=== PATIENT | female | born 1975 | race Caucasian/White ===

== ENCOUNTER → 2024-03-16 07:49 | Outpatient (REF) | payer OTHER, SELFPAY | LOC: HWRAD 07:49 | PROVIDERS: ATTENDING PHYSICIAN Internal Medicine | DX: M54.50 Low back pain, unspecified (principal); M25.512 Pain in left shoulder | CPT/HCPCS: 72110; 73030 ==

== ENCOUNTER 2024-07-27 17:57 | Emergency (ER) | payer OTHER, SELFPAY ==
[2024-07-27 18:00] VITALS: BP 148/90
--- NOTE | 2024-07-27 18:00 | ED.GENMED ---
ED Provider Triage
<Avani Phillips BODY RECALL INSTRUCTOR - Last Filed: 07/27/24 18:09>
-
Patient seen by provider in Triage?: Seen in Triage
Attestation: A medical screening examination has been initiated by a qualified medical provider. Based on the assessment performed at this time, it has been determined that an emergent medical condition may exist and the patient has been informed
that further medical evaluation and possible additional diagnostic testing may be needed.
HPI: 48 yo female here for pain bilateral lower back. headache increasing past week, alternately hot and cold past week. 'Intensifying low back pain.' Hx 'baseball sized uterine fibroid' informed by her Urologist about 6 months ago. RADIO COMMENTATOR had told
her years ago the fibroid was small and nothing to worry about.
GENERAL: Alert , in no apparent distress
LUNGS: No acute respiratory distress
NEUROLOGICAL: Alert and oriented
SKIN: Skin intact. No visible changes.
MUSCULOSKELETAL: Moving extremities normally
PSYCH: Normal and appropriate interaction.
This is a medical evaluation conducted in person to initiate diagnostic evaluation and provide initial therapeutics. Please see further documentation by the treating clinician.
History of Present Illness
<Avani Phillips, BODY RECALL INSTRUCTOR - Last Filed: 07/27/24 18:09>
General
Chief Complaint: Back Pain
Time Seen by Provider: 07/27/24 20:58
<KIRAN Joyce - Last Filed: 07/28/24 00:21>
General
Source: patient
Exam Limitations: none
History of Present Illness
History of Present Illness:
This is a 48 year old female that comes in with c/o low back pain. States that this is getting worse and worse. States that this has been going on for 2 years. States that she has been to the chiropractor, histologist, Massage, and nothing helps.
States that she has an MRI and things were normal. States that she knows that something is wrong in side. States that she can't sleep, stand she is just in terrible pain. States that she gets hot and cold sweats. Nausea, diarrhea, headache,
lightheadedness. Denies any fever, chills, chest pain, SOB, vomiting, urinary burning
Past History
<Avani Phillips NP - Last Filed: 07/27/24 18:09>
Past History
ED Past Medical History: GERD and Other (PE, Ovarian cyst, Factor V leiden)
ED Past Surgical History: Orthopedic
Social History
Tobacco: Non-smoker
Alcohol: Occasional
Personal: Single
Living: alone
<KIRAN Joyce - Last Filed: 07/28/24 00:21>
Past History
ED Past Medical History: Other (PE, Ovarian cyst, Factor V Leiden)
ED Past Surgical History: Orthopedic (Bunionectomy)
Review of Systems
<KIRAN Joyce - Last Filed: 07/28/24 00:21>
Review of Systems
All Other Systems: ROS reviewed and negative except as documented in HPI and ROS
Constitutional: Reports other (feels hot and cold); Denies fever or chills
EENT: Reports no symptoms
Respiratory: Reports no symptoms; Denies cough or trouble breathing
Cardiac: Reports no symptoms; Denies chest pain
ABD/GI: Reports abdominal pain, nausea and diarrhea; Denies vomiting
: Reports no symptoms; Denies dysuria, frequency or urgency
Musculoskeletal: Reports back pain (Low back pain)
Skin: Reports no symptoms
Neurological: Reports headache and other (Lightheadedness)
Psychiatric: Reports no symptoms
Phy Exam
<KIRAN Joyce - Last Filed: 07/28/24 00:21>
General Physical Exam
General Presentation: no apparent distress
General age: appears stated age
General Skin: warm and dry
General Habitus: normal
General Mental: alert
General Hydration: appears well hydrated
ENT Exam
ENT Exam: TM's normal, pharynx normal and neck supple
Eye Exam
Eye Exam: EOMI
Cardiovascular Exam
Cardiovascular Exam: regular rate/rhythm, no edema, no murmur and normal peripheral pulses
Pulmonary Exam
Pulmonary Exam: lungs clear, no respiratory distress, no rales, chest non tender, no crackles, no rhonchi, no wheezing and no cough
Gastrointestinal Exam
Gastrointestinal Exam: normal bowel sounds, non tender, soft, no organomegaly, no pulsatile mass and non distended
Musculoskeletal Exam
Musculoskeletal Exam: full ROM and no edema
Skin Exam
Skin Exam: normal color, warm/dry, no rash and no petechia
Psychiatric Exam
Psychiatric Exam: normal mood/affect
Course
<Avani Phillips BODY RECALL INSTRUCTOR - Last Filed: 07/27/24 18:09>
Orders/Labs/Results
Orders:
Orders
07/27/24 18:12
Complete Blood Count/With Diff Urgent
Comprehensive Metabolic Panel Urgent
HCG, Serum Qualitative Screen Urgent
Comment: ADD ON
07/27/24 18:16
Urinalysis Reflex To Culture Urgent
Date Specimen was Collected: 07/27/24
Time Specimen was Collected: 18:12
07/27/24 21:21
0.9% Sodium Chloride 1000 ml [Nss] 1,000 ml IV BOLUS
Iohexol [Omnipaque] See Protocol PO NOW STA
07/27/24 21:22
CT Abd/pel W Iv And Oral Contr Urgent
Comment:
Reason For Exam: back pain, nausea, abd pain
07/27/24 21:25
Acetaminophen [Tylenol] 1,000 mg PO NOW STA
Ketorolac [Toradol] 30 mg IV NOW STA
07/27/24 22:33
Add On- LAB Urgent
Tests Added?: hcg qualitative
Abnormal Lab Results
07/27/24
18:12
Monocytes % 10.5 H %
(1.7-9.3)
Alkaline Phosphatase 33 L U/L
(38-126)
07/27/24 18:12
07/27/24 18:12
Vital Signs
Initial and Last Documented VS:
Initial Vital Signs
Temp Pulse Resp BP Pulse Ox
98.0 F 95 16 148/90 98
07/27/24 18:00 07/27/24 18:00 07/27/24 18:00 07/27/24 18:00 07/27/24 18:00
Last Documented Vital Signs
Temp Pulse Resp BP Pulse Ox
98.7 F 71 18 119/77 97
07/27/24 19:54 07/27/24 21:41 07/27/24 21:41 07/27/24 21:41 07/27/24 21:41
<KIRAN Joyce - Last Filed: 07/28/24 00:21>
Orders/Labs/Results
Orders:
Orders
07/27/24 18:12
Complete Blood Count/With Diff Urgent
Comprehensive Metabolic Panel Urgent
HCG, Serum Qualitative Screen Urgent
Comment: ADD ON
07/27/24 18:16
Urinalysis Reflex To Culture Urgent
Date Specimen was Collected: 07/27/24
Time Specimen was Collected: 18:12
07/27/24 21:21
0.9% Sodium Chloride 1000 ml [Nss] 1,000 ml IV BOLUS
Iohexol [Omnipaque] See Protocol PO NOW STA
07/27/24 21:22
CT Abd/pel W Iv And Oral Contr Urgent
Comment:
Reason For Exam: back pain, nausea, abd pain
07/27/24 21:25
Acetaminophen [Tylenol] 1,000 mg PO NOW STA
Ketorolac [Toradol] 30 mg IV NOW STA
07/27/24 22:33
Add On- LAB Urgent
Tests Added?: hcg qualitative
Abnormal Lab Results
07/27/24
18:12
Monocytes % 10.5 H %
(1.7-9.3)
Alkaline Phosphatase 33 L U/L
(38-126)
07/27/24 18:12
07/27/24 18:12
Alk phos slightly low. Otherwise normal labs. Urine negative for infection. HCG negative.
Vital Signs
Initial and Last Documented VS:
Initial Vital Signs
Temp Pulse Resp BP Pulse Ox
98.0 F 95 16 148/90 98
07/27/24 18:00 07/27/24 18:00 07/27/24 18:00 07/27/24 18:00 07/27/24 18:00
Last Documented Vital Signs
Temp Pulse Resp BP Pulse Ox
98.7 F 71 18 119/77 97
07/27/24 19:54 07/27/24 21:41 07/27/24 21:41 07/27/24 21:41 07/27/24 21:41
<KIRAN Joyce - Last Filed: 07/28/24 00:21>
MDM/Problems Addressed
Differential Diagnosis Includes:
Fibroids, Musculoskeletal pain
MDM/Problems Addressed:
This is a 48 year old female that comes in with c/o low back pain. States that this has been going on for the past 2 years. States that the pain is getting worse and she knows that something is wrong in side of her.
Will check labs. Urine and get CT scan.
Back into see patient. Explained that her CT shows uterine fibroid. Patient to follow up with the SLICE PLUG CUTTER OPERATOR HELPER and the family doctor. Patient can take Tylenol 1000mg every 6 hours for pain. Return with any concerns
Chronic conditions affecting care:
NA
Acute Exacerbation and/or Progression of Chronic Illness:
NA
<KIRAN Joyce - Last Filed: 07/28/24 00:21>
*Radiology
Radiology exam reviewed: radiology read reviewed (CT- night hawk-MIld hyperenhancement of the left ureter, can be corelated with signs or symptoms of urinary tract infection. NO bowel obstruction. NOrmal gallbladder and appendix. Incidentals: Likely
fibroid uterus as seen on prior Moderate stool burden. No obstructive uropathy. No hepatic or) and all reviewed NAD by ED Provider (CT cont- or pancreatic mass. NO abdominal aortic aneurysm. No acute osseous abnormality. Again seen is right lower
pericardial cyst. Unchanged right lower lobe Pulmonary nodule. No acute abnormality within the visualized soft tissues. )
*Pulse Oximetry
Patient hypoxic: no
*EKG
Interpreted by ED Provider?: NA
Rate: EKG- N/A
*Hydroelectric Powerplant Supervisor Interpretation
Rate: Hydroelectric Powerplant Supervisor- N/A
*Critical Care Note
Total Time (30-74mins, 75-104mins- exclusive of procedures): Not Applicable
ED Attending Note
<Avani Phillips NP - Last Filed: 07/27/24 18:09>
-
Portions of this chart may have been created with voice recognition software.� Occasional wrong word or��sound alike� substitutions may have occurred due to the inherent limitations of voice recognition software.
Discharge Plan
Departure
Patient Disposition: Home (Routine Discharge)
Date of Disposition: 07/28/24
Time of Disposition: 00:17
Patient with high blood pressure during this ER visit?: No
Condition: Good
Covid-19: Not Applicable
Discharge Problem:
Low back pain, Uterine fibroid
Instructions: Low Back Pain (DC), Uterine Fibroids (DC)
Prescriptions:
No Action
alprazolam 0.5 MG tablet
0.5 mg PO PRN PRN (Reason: anxiety)
zolpidem 5 MG tablet
5 mg PO HS PRN (Reason: insomnia)
rivaroxaban [Xarelto] 10 MG tablet
10 mg PO DAILY
L.acidoph, paracasei,B. lactis 1 EACH capsule
1 ea PO DAILY
Calcium
1 tab PO DAILY
cyclobenzaprine 10 mg tablet
10 mg PO TID PRN (Reason: muscle spasm) Qty: 10 0RF
Referrals:
UNKNOWN - PT DOES,NOT KNOW [Family Provider] -
Activity Restrictions/Additional Instructions:
As discussed, your blood work is normal along with your urine. Your CT is negative for anything acute. There is a uterine Fibroid that was noted on prior studies. Please follow up with the SLICE PLUG CUTTER OPERATOR HELPER for further evaluation. You may use Tylenol 1000mg
very 6 hours for pain. IF YOU HAVE ANY OTHER CONCERNS PLEASE RETURN TO THE EMERGENCY ROOM.
Interventions
Interventions:
*Risk Screen - Suicide Last Done: 07/27/24 18:00
*General Assessment Last Done: 07/27/24 21:39
*Neglect/Abuse Screening Last Done: 07/27/24 18:00
*ED COVID-19 Vaccine History Last Done: 07/27/24 21:39
ED-Musculoskeletal Assessment Last Done: 07/27/24 21:40
Discharge Date and Time
Print Language: BOLIVIAN
[2024-07-27 18:37] LABS: Urine Albumin Negative (Neg - Trace); Urine Bilirubin Negative (Negative); Urine Character Clear (Clear); Urine Color Yellow; Urine Glucose Negative (Negative); Urine Ketone Negative (Negative); Urine Leukocyte Negative (Negative); Urine Nitrite Negative (Negative); Urine Occult Blood Negative (Negative); Urine Urobilinogen Negative (Neg - 1+)
[2024-07-27 18:37] LABS: % Basophils 0.4 % (0-2); % Eosinophils 1.8 % (0-6); % Immature Granulocytes 0.2 % (0-0.5); % Monocytes 10.5 % (1.7-9.3); % Neutrophils 58.1 % (42.2-75.2); Absolute Eosinophils 0.1 10^3/uL (0-0.7); Absolute Lymphocytes 1.6 10^3/uL (1.2-3.4); Absolute Monocytes 0.6 10^3/uL (0.1-0.6); Absolute Neutrophils 3.2 10^3/uL (1.4-6.5); Hematocrit 37.6 % (37.0-47.0); Hemoglobin 12.8 g/dL (12.0-16.0); Mean Corpuscular Hgb 29.5 pg (27.0-31.0); Mean Corpuscular Volume 86.6 fL (81.0-99.0); Mean Platelet Volume 9.9 fL (7.4-10.4); Nucleated Red Blood Cells % 0 %; Platelet Count 256 10^3/uL (130-400); Red Blood Cell Count 4.34 10^6/uL (4.20-5.40); Red Cell Dist. Width 13.2 % (11.5-14.5); White Blood Cell Count 5.5 10^3/uL (4.8-10.8)
[2024-07-27 18:56] LABS: ALT (SGPT) 16 U/L (0-35); AST (SGOT) 23 U/L (14-36); Albumin 4.2 g/dl (3.5-5.0); Alkaline Phosphatase 33 U/L (38-126); Blood Urea Nitrogen 15 mg/dl (7-17); Calcium 9.4 mg/dl (8.4-10.2); Carbon Dioxide 26 mmol/L (22-30); Chloride 104 mmol/L (98-107); Glucose 90 mg/dl (70-99); Potassium 3.6 mmol/L (3.5-5.1); Sodium 142 mmol/L (135-145); Total Bilirubin 0.2 mg/dl (0.2-1.3); Total Protein 6.5 g/dl (6.3-8.2); eGFR > 60.00
[2024-07-27 19:54] VITALS: BP 110/76
[2024-07-27] MEDS: OMNIPAQUE 50 ML PO (21:30)
[2024-07-27] MEDS: NSS 1000 IV (21:36)
[2024-07-27] MEDS: TYLENOL 1000 MG PO (21:36)
[2024-07-27] MEDS: TORADOL 30 MG IV (21:37)
[2024-07-27 21:41] VITALS: BP 119/77
[2024-07-27 23:05] LABS: HCG, Serum Qualitative Screen Negative
[2024-07-28 00:27] VITALS: BP 125/85
== END 2024-07-28 00:28 | disposition home or self-care (01) ==
LOC: EMR 17:57
PROVIDERS: Registered Nurse; EMERGENCY PHYSICIAN Student in an Organized Health Care Education/Training Program
DX: M54.50 Low back pain, unspecified (principal); D25.9 Leiomyoma of uterus, unspecified; D68.51 Activated protein C resistance; K21.9 Gastro-esophageal reflux disease without esophagitis
CPT/HCPCS: 96374; 96361; 99284; 74177; 80053; 81003; 84703; 85025; Q9967

== ENCOUNTER → 2024-08-19 19:22 | Outpatient (REF) | payer OTHER, SELFPAY | LOC: MRI 3T 19:22 | DX: M54.50 Low back pain, unspecified (principal) | CPT/HCPCS: 72148 ==

== ENCOUNTER → 2024-11-12 09:41 | Outpatient (REF) | payer OTHER, SELFPAY | LOC: RAD 09:41 | PROVIDERS: ATTENDING PHYSICIAN Internal Medicine Cardiovascular Disease | DX: Q24.8 Other specified congenital malformations of heart (principal) | CPT/HCPCS: 71260; Q9967 ==

== ENCOUNTER → 2024-11-12 15:52 | Outpatient (REF) | payer OTHER, SELFPAY | LOC: HWRCS 15:52 | PROVIDERS: ATTENDING PHYSICIAN Internal Medicine Cardiovascular Disease | DX: Q24.8 Other specified congenital malformations of heart (principal); R00.1 Bradycardia, unspecified | CPT/HCPCS: 93306 ==

== ENCOUNTER → 2024-12-15 19:44 | Outpatient (REF) | payer OTHER, SELFPAY | LOC: MRI 3T 19:44 | PROVIDERS: ATTENDING PHYSICIAN Obstetrics & Gynecology Gynecology; FAMILY PHYSICIAN Physician Assistant | DX: D21.9 Benign neoplasm of connective and other soft tissue, unspecified (principal); N83.209 Unspecified ovarian cyst, unspecified side | CPT/HCPCS: 72197; A9575 ==

== ENCOUNTER 2025-04-03 01:43 | Emergency (ER) | payer OTHER, SELFPAY ==
[2025-04-03 01:54] VITALS: BP 120/87
[2025-04-03 02:00] VITALS: BP 130/84
--- NOTE | 2025-04-03 02:08 | ED.GENMED ---
History of Present Illness
General
Chief Complaint: Chest Pain
Source: patient
Exam Limitations: none
Time Seen by Provider: 04/03/25 02:07
Nursing documentation reviewed up to this point in time: agreed with
History of Present Illness
History of Present Illness:
49-year-old female presents emergency department complaining of chest tightness and nausea and headache. The headache began earlier today. She has had chest tightness and numbness in her left arm for the past 2 days. She also complains of neck
pain, which she sometimes gets neck strains and muscle tightness.
Past History
Past History
ED Past Medical History: GERD and Other (PE, Ovarian cyst, Factor V Leiden)
ED Past Surgical History: Orthopedic (Bunionectomy)
Social History
Tobacco: Non-smoker
Alcohol: Occasional
Personal: Single
Living: alone
Review of Systems
Review of Systems
Allergies reviewed?: Yes
All Other Systems: Not applicable
Constitutional: Reports no symptoms
EENT: Reports no symptoms
Respiratory: Reports no symptoms
Cardiac: Reports chest pain
ABD/GI: Reports nausea
: Reports no symptoms
Musculoskeletal: Reports neck pain
Skin: Reports no symptoms
Neurological: Reports headache
Endocrine: Reports no symptoms
Hematologic/Lymphatic: Reports no symptoms
Psychiatric: Reports no symptoms
Phy Exam
Physical Exam
Physical Exam:
Physical Exam
General: no apparent distress, not acutely ill
Neck: supple. no meningeal signs. normal posterior pharynx, tender to palpation at left SCM
Heart: s1/s2 regular rate and rhythm, no murmur. equal radial
pulses.
HEENT: Pupils equal round reactive to light, EOMI
Lungs: no acute respiratory distress. clear bilaterally
Abdomen: normal bowel sounds. not tender. no CVAT
Neuro: alert and oriented. no focal neurological deficits cranial nerves II through XII intact
Skin: no rash
Psychiatric: well kept. interactive and cooperative
Extremities: no edema. no calf tenderness. negative homans. good distal pulses
Scores
Heart Score for Chest Pain Patients
STEMI patient?: No
History: Slightly or Non-Suspicious
ECG: Normal
Age: >45 - <65 years
Risk Factors: No Risk Factors
Troponin: </= Normal Limit
Heart Score for Chest Pain Patients: 1
Heart Score Risk: 2.5% MACE over next 6 weeks
Course
Orders/Labs/Results
Orders:
Orders
04/03/25 01:48
Electrocardiogram (*1) Urgent
Reason for Study: Chest Pain
Cardiac Monitoring- Treatment ONCE
EKG- Treatment ONCE
IV Insert/Care/Rem.- Treatment PRN
O2 Therapy [RESP] Urgent
Titrate/Wean O2 to maintain O2 sat greater than (%): 90
Special Instructions: Maintain sats >/=90%
Pulse Ox/spot Check [RESP] Urgent
Quantity: 1
Special Instructions: ON ROOM AIR
04/03/25 01:49
Test Result ONCE
04/03/25 02:06
Complete Blood Count/With Diff Urgent
Comprehensive Metabolic Panel Urgent
D-Dimer Urgent
Comment: ADDED
HCG, Serum Qualitative Screen Urgent
PTT Urgent
Prothrombin Time Urgent
Troponin I Urgent
04/03/25 02:20
Add On- LAB Urgent
Tests Added?: ddimer
CT Head W/o Iv Contrast Urgent
Comment:
Reason For Exam: headache
04/03/25 02:22
Vital Signs- Treatment ONCE
Frequency: Hourly
04/03/25 02:23
Ondansetron Injectable [Zofran] 4 mg IV NOW STA
Pantoprazole [Protonix IV] 40 mg IV NOW STA
Abnormal Lab Results
04/03/25
02:06
RBC 4.02 L 10^6/uL
(4.20-5.40)
Hgb 11.9 L g/dL
(12.0-16.0)
Hct 34.9 L %
(37.0-47.0)
Absolute Monos (auto) 0.7 H 10^3/uL
(0.1-0.6)
Eosinophils % 6.1 H %
(0-6)
PT 19.0 H Sec
(11.4-14.6)
APTT 45.7 H Sec
(23.4-35.0)
Chloride 109 H mmol/L
(98-107)
Total Protein 6.2 L g/dl
(6.3-8.2)
04/03/25 02:06
04/03/25 02:06
Vital Signs
Initial and Last Documented VS:
Initial Vital Signs
BP
120/87
04/03/25 01:54
Last Documented Vital Signs
Pulse Resp BP Pulse Ox
70 13 111/71 97
04/03/25 04:15 04/03/25 04:15 04/03/25 04:00 04/03/25 04:15
MDM/Problems Addressed
Differential Diagnosis Includes:
ACS, PE, intracranial hemorrhage, intracranial tumor
MDM/Problems Addressed:
49-year-old female with chest tightness, headache. Doubt ACS or PE. CT head no acute findings. Stable for discharge. Return precautions given.
Chronic conditions affecting care: Other (Factor V Leiden)
*Radiology
Radiology exam reviewed: preliminary read by ED provider (CT head no acute findings)
*Pulse Oximetry
SaO2: 100
Oxygen Mode of Delivery: Room air
Patient hypoxic: no
*EKG
Interpreted by ED Provider?: Yes
EKG Intrepretation Date: 04/03/25
EKG Intrepretation Time: 01:52
Interpretation: normal
Comparison EKG: no changes
Heart Rate: 80
Rate: normal
Rhythm: sinus
[place]: normal axis
Interval: normal interval
QRS Pattern: normal QRS
Ischemia: no ischemia
*Marine Pilot Interpretation
Rate: normal
Interpretation: normal
Heart Rate: 82
Rhythm: sinus
*Critical Care Note
Total Time (30-74mins, 75-104mins- exclusive of procedures): Not Applicable
Data Reviewed
Further Testing Considered But Not Given:
CT chest not indicated
Patient Management
Social determinants of health affecting care: Living situation and Strong social support
Escalation/DeEscalation of care consider admission/obs:
Admit not indicated
ED Attending Note
-
Portions of this chart may have been created with voice recognition software.� Occasional wrong word or��sound alike� substitutions may have occurred due to the inherent limitations of voice recognition software.
Discharge Plan
Departure
Patient Disposition: Home (Routine Discharge)
Date of Disposition: 04/03/25
Time of Disposition: 04:24
Patient with high blood pressure during this ER visit?: No
Condition: Good
Discharge Problem:
Chest pain, Headache
Instructions: Headaches in adults, Chest Pain PCP Follow Up
Prescriptions:
New
cyclobenzaprine 10 mg tablet
10 mg PO TID PRN (Reason: pain/spasm) Qty: 10 0RF
No Action
alprazolam 0.5 MG tablet
0.5 mg PO PRN PRN (Reason: anxiety)
zolpidem 5 MG tablet
5 mg PO HS PRN (Reason: insomnia)
rivaroxaban [Xarelto] 10 MG tablet
10 mg PO DAILY
L.acidoph,paracasei,B.animalis 1 EACH capsule
1 ea PO DAILY
Calcium
1 tab PO DAILY
cyclobenzaprine 10 mg tablet
10 mg PO TID PRN (Reason: muscle spasm) Qty: 10 0RF
Referrals:
UNKNOWN - PT DOES,NOT KNOW [Unknown Provider]
Activity Restrictions/Additional Instructions:
Follow-up primary care in 3 to 5 days. Primary concerns
Interventions
Interventions:
*Risk Screen - Suicide Last Done: 04/03/25 01:50
*General Assessment Last Done: 04/03/25 01:50
*Neglect/Abuse Screening Last Done: 04/03/25 01:50
*ED- Fall Risk Assessment Last Done: 04/03/25 01:58
*ED COVID-19 Vaccine History Last Done: 04/03/25 01:58
ED- Cardiac Assessment Last Done: 04/03/25 01:58
Discharge Date and Time
Print Language: CITIZEN [place]
[2025-04-03 02:16] LABS: Hematocrit 34.9 % (37.0-47.0); Hemoglobin 11.9 g/dL (12.0-16.0); Mean Corp Hgb Conc. 34.1 g/dL (33.0-37.0); Mean Corpuscular Volume 86.8 fL (81.0-99.0); Nucleated Red Blood Cells % 0 %; Platelet Count 301 10^3/uL (130-400); Red Cell Dist. Width 13.4 % (11.5-14.5)
[2025-04-03 02:25] LABS: APTT 45.7 Sec (23.4-35.0)
[2025-04-03 02:30] LABS: INR 1.57; PT 19.0 Sec (11.4-14.6)
[2025-04-03 02:36] LABS: HCG, Serum Qualitative Screen Negative
[2025-04-03 02:41] LABS: ALT (SGPT) 11 U/L (0-35); AST (SGOT) 19 U/L (14-36); Albumin 3.8 g/dl (3.5-5.0); Alkaline Phosphatase 49 U/L (38-126); Blood Urea Nitrogen 17 mg/dl (7-17); Calcium 9.1 mg/dl (8.4-10.2); Carbon Dioxide 23 mmol/L (22-30); Chloride 109 mmol/L (98-107); Glucose 96 mg/dl (70-99); Potassium 4.0 mmol/L (3.5-5.1); Sodium 137 mmol/L (135-145); Total Protein 6.2 g/dl (6.3-8.2); eGFR > 60.00
[2025-04-03 02:48] LABS: Troponin I < 0.012 ng/ml
[2025-04-03 03:00] VITALS: BP 102/74
[2025-04-03 03:03] LABS: D-Dimer < 0.27 ug/mlFEU (0.00-0.50)
[2025-04-03] MEDS: ZOFRAN 4 MG IV (03:05)
[2025-04-03] MEDS: PROTONIX IV 40 MG IV (03:05)
[2025-04-03 04:00] VITALS: BP 111/71
[2025-04-03 04:53] VITALS: BP 107/80
== END 2025-04-03 04:57 | disposition home or self-care (01) ==
LOC: EMR 01:43
PROVIDERS: EMERGENCY PHYSICIAN Emergency Medicine; FAMILY PHYSICIAN Family Medicine
DX: R07.89 Other chest pain (principal); R51.9 Headache, unspecified; D68.51 Activated protein C resistance; Z86.711 Personal history of pulmonary embolism
CPT/HCPCS: 99284; 96374; 96375; 70450; 80053; 84484; 84703; 85025; 85379; 85610; 85730; 93005

== ENCOUNTER 2025-09-14 06:49 | Day surgery (SDC) | payer OTHER, SELFPAY ==
[2025-09-07 08:54] LABS: Hematocrit 39.5 % (37.0-47.0); Hemoglobin 13.1 g/dL (12.0-16.0); Mean Corp Hgb Conc. 33.2 g/dL (33.0-37.0); Mean Corpuscular Volume 84.6 fL (81.0-99.0); Platelet Count 249 10^3/uL (130-400); Red Cell Dist. Width 14.0 % (11.5-14.5)
[2025-09-07 11:26] LABS: Blood Urea Nitrogen 16 mg/dl (7-17); Calcium 9.1 mg/dl (8.4-10.2); Carbon Dioxide 31 mmol/L (22-30); Chloride 103 mmol/L (98-107); Glucose 87 mg/dl (70-99); Potassium 4.4 mmol/L (3.5-5.1); Sodium 136 mmol/L (135-145); eGFR > 60.00
[2025-09-07 13:22] VITALS: BMI 21.5
[2025-09-14] VITALS (13 sets, daily range): BP systolic 109–132; BP diastolic 73–83; BMI 21.5
[2025-09-14] MEDS: HEPARIN 5000 UNITS SC (09:04)
[2025-09-14] MEDS: DILAUDID 0.5 MG IV (12:24)
[2025-09-14] MEDS: ZOFRAN 4 MG IV (12:27)
== END 2025-09-14 15:29 | disposition home or self-care (01) ==
LOC: SDS 06:49
PROVIDERS: ATTENDING PHYSICIAN Obstetrics & Gynecology; FAMILY PHYSICIAN Family Medicine
DX: D25.9 Leiomyoma of uterus, unspecified (principal); N83.8 Other noninflammatory disorders of ovary, fallopian tube and broad ligament; N80.03 Adenomyosis of the uterus; D68.51 Activated protein C resistance
CPT/HCPCS: 58573; 80048; 85027; 86850; 86900; 86901; 88307; 93005